=== PATIENT | female | born 1980 | race Caucasian/White ===

== ENCOUNTER 2017-03-30 08:00 | Inpatient (IN) | payer OTHER ==
[2017-03-30] MEDS ORDERED: ELECTROLYTE-148 SOLN 1,000 ML IV SCH (09:00)
[2017-03-30] MEDS ORDERED: AMPICILLIN SODIUM 2 GM VIAL ONE (09:17)
[2017-03-30] MEDS ORDERED: AMPICILLIN - 2 GM in SODIUM CHLORIDE 100 ML IVPB ONE (09:30)
[2017-03-30 09:51] VITALS: BMI 30.9
[2017-03-30 10:30] LABS: BASO % 0.2 % (0-2.0); EOS % 0.5 % (0-4.5); HEMATOCRIT 33.2 % (32.4-45.2); HEMOGLOBIN 10.9 GM/dL (10.7-15.3); LYMPH % 8.4 % (8-40); MCH 29.3 pg (25.7-33.7); MCHC 32.8 g/dl (32.0-36.0); MEAN CELL VOLUME 89.3 fl (80-96); MONO % 5.7 % (3.8-10.2); NEUT % 85.2 % (42.8-82.8); PLATELET COUNT 202 K/MM3 (134-434); RBC 3.72 M/mm3 (3.60-5.2); WHITE BLOOD COUNT 12.2 K/mm3 (4.0-10.0)
[2017-03-30 10:42] LABS: URINE APPEARANCE CLEAR; URINE BILIRUBIN NEGATIVE (NEGATIVE); URINE BLOOD 2+ (NEGATIVE); URINE COLOR YELLOW; URINE GLUCOSE (UA) NEGATIVE (NEGATIVE); URINE KETONE NEGATIVE (NEGATIVE); URINE LEUK ESTERASE TRACE (NEGATIVE); URINE NITRITE NEGATIVE (NEGATIVE); URINE PROTEIN NEGATIVE (NEGATIVE); URINE UROBILINOGEN NEGATIVE mg/dL (0.2-1.0)
[2017-03-30] MEDS ORDERED: PROMETHAZINE HCL 25 MG/1 ML VIAL IVPB ONE (10:45)
[2017-03-30] MEDS ORDERED: BUTORPHANOL TARTRATE 1 MG/ML VIAL IVPUSH ONE (10:45)
[2017-03-30 10:49] LABS: INR 0.91 (0.82-1.09); PROTHROMBIN TIME (PATIENT) 10.3 SEC (9.98-11.88)
[2017-03-30 10:52] LABS: ACTIVATED PTT 25.7 SECONDS (26.9-34.4)
[2017-03-30 10:54] LABS: COCAINE, UR NEGATIVE ng/ml (CUTOFF=300); METHADONE, UR NEGATIVE ng/ml (CUTOFF=300); OPIATES, URI NEGATIVE ng/ml (CUTOFF=300); PHENCYCLIDINE,URINE NEGATIVE ng/ml (CUTOFF=25); URINE AMPHETAMINES NEGATIVE ng/ml (CUTOFF=500); URINE BARBITURATES NEGATIVE ng/ml (CUTOFF=200); URINE BENZODIAZEPINES NEGATIVE ng/ml (CUTOFF=200)
[2017-03-30 10:57] LABS: EPI CELLS RARE /HPF (FEW); URINE MUCUS RARE
[2017-03-30] MEDS ORDERED: TUBERCULIN PPD 5 TU/0.1ML SYRINGE (IN PATIENT USE ONLY) ID ONE (11:00)
[2017-03-30 11:02] LABS: ALBUMIN 2.9 g/dl (3.4-5.0); ANION GAP 8 (8-16); BLOOD UREA NITROGEN 8 mg/dL (7-18); CALCIUM 8.2 mg/dL (8.5-10.1); CHLORIDE 105 mmol/L (98-107); CO2 24 mmol/L (21-32); CREATININE 0.5 mg/dL (0.55-1.02); GLUCOSE,RANDOM 72 mg/dL (74-106); POTASSIUM 3.6 mmol/L (3.5-5.1); SGOT/AST 46 U/L (15-37); SGPT/ALT 29 U/L (12-78); SODIUM 137 mmol/L (136-145)
[2017-03-30 11:04] LABS: ALK PHOS 207 U/L (45-117); BILIRUBIN,TOTAL 0.4 mg/dL (0.2-1.0); TOT PROT 6.8 g/dl (6.4-8.2)
[2017-03-30] MEDS: AMPICILLIN - 1 GM in SODIUM CHLORIDE 100 ML IVPB SCH ×3 (13:32→21:30)
[2017-03-30] MEDS ORDERED: OXYTOCIN 30 UNITS in 0.9% NS 30 UNIT/500 ML INFUS.BAG IVPB SCH (14:45)
[2017-03-30] MEDS ORDERED: FENTANYL/BUPIVACAINE/NS/PF - PCEA - 50 ML DISP.SYRIN EP ONE ×2 (15:47→20:33)
[2017-03-30] MEDS ORDERED: NALOXONE HCL 0.4 MG/ML VIAL IVPUSH PRN (16:14)
[2017-03-30] MEDS ORDERED: FENTANYL/BUPIVACAINE/NS/PF - PCEA - 50 ML DISP.SYRIN EP SCH (16:15)
--- NOTE | 2017-03-30 16:48 | HP ---
Past Medical History - Primary Care Physician PCP:: Tyron Vargas - Admission Chief Complaint: 40 weeks, labor History of Present Illness: 37 yo f 40 weeks c/o contraction, no rom, no bleeding, cx 3cm 80 vx -2 mi, fhr cat 2, contraction q 3min care [facility] , GBS unknown History Source: Patient Limitations to Obtaining History: Language Barrier - Past Medical History ...: 4 ...Para: 2 ...Term: 2 ...: 0 ...Spon : 1 ...Induced : 0 ...Multiple Gestation: 0 ... Weeks Gestation by Dates: 40.0 ...EDC by Dates: 03/30/17 - Past Surgical History Hx Myomectomy: No Hx Transabdominal Cerclage: No - Smoking History Smoking history: Never smoked Have you smoked in the past 12 months: No - Alcohol/Substance Use Hx Alcohol Use: No - Social History Usual Living Arrangement: Yes: With Spouse History of Recent Travel: No Home Medications - Allergies Allergies/Adverse Reactions: Allergies Allergy/AdvReac Type Severity Reaction Status Date / Time No Known Allergies Allergy Verified 03/30/17 08:36 - Home Medications Home Medications: Ambulatory Orders Vit 108/Iron/Folic AC [ One Tablet] 1 tab PO DAILY 03/28/17 Review of Systems - Review of Systems Constitutional: reports: No Symptoms Eyes: reports: No Symptoms HENT: reports: No Symptoms Neck: reports: No Symptoms Cardiovascular: reports: No Symptoms Respiratory: reports: No Symptoms Gastrointestinal: reports: No Symptoms Genitourinary: reports: No Symptoms Breasts: reports: No Symptoms Reported Musculoskeletal: reports: No Symptoms Integumentary: reports: No Symptoms Neurological: reports: No Symptoms Endocrine: reports: No Symptoms Hematology/Lymphatic: reports: No Symptoms Psychiatric: reports: No Symptoms Physical Exam - Maternity Vital Signs: Vital Signs Temperature 98.3 F 03/30/17 14:00 Pulse Rate 77 03/30/17 15:00 Respiratory Rate 18 03/30/17 15:00 Blood Pressure 114/64 03/30/17 15:00 O2 Sat by Pulse Oximetry (%) Constitutional: Yes: Well Nourished, No Distress, Calm Eyes: Yes: WNL, Conjunctiva Clear, EOM Intact HENT: Yes: WNL, Atraumatic, Normocephalic Neck: Yes: WNL, Supple, Trachea Midline Cardiovascular: Yes: WNL, Regular Rate and Rhythm Breast(s): Yes: WNL - Abdominal Exam/OB Fundal Height: 38 Number of Fetuses: Single Presentation: Vertex Contractions: Yes Regularity: Regular Intensity: Moderate Monitor Mode: External Heart Rate Location: [facility] Category: I Accelerations: Uniform Decelerations: None - Vaginal Exam/OB Vaginal Bleediing: No Speculum Exam: No Dilatation (cm): 3 cm Effacement (%): 80 Amniotic Membrane Status: Intact Nitrazine Test: Negative Presentation: Vertex/Position Station: -2 - Physical Exam Musculoskeletal: Yes: WNL Edema: Yes Edema: LLE: Trace, RLE: Trace Integumentary: Yes: Tenting Deep Tendon Reflex Grade: Normal +2 Psychiatric: Yes: WNL - Labs Lab Results: CBC, BMP 03/30/17 10:00 03/30/17 10:00 Hemorrhage Risk Assessment - Risk Factors Medium Risk Factors: Yes: None High Risk Factors: Yes: None Risk Score: 1 Risk Level: Medium Risk Problem List - Problems (1) 40 weeks gestation of Code(s): Z3A.40 - 40 WEEKS GESTATION OF (2) Labor established Code(s): GBB6663 - (3) Advanced maternal age (AMA) in Code(s): [id number] - Assessment/Plan plan admit, fhm ,, prophylactic antibiotic for GBS , pain management
--- NOTE | 2017-03-30 16:56 | PN ---
Progress Note (short form) - Note Progress Note: 2 pm cx 4 cm 80 vx -2 arom, clear , fhr cat 1 Problem List - Problems (1) 40 weeks gestation of Code(s): Z3A.40 - 40 WEEKS GESTATION OF (2) Labor established Code(s): HZZ8946 - (3) Advanced maternal age (AMA) in Code(s): TSV1736 -
[2017-03-30] MEDS ORDERED: AMPICILLIN SODIUM 1 GM VIAL ONE (17:34)
[2017-03-30] MEDS ORDERED: OXYTOCIN 15 UNITS/ LR 250 ML 15 UNIT/250 ML INFUS.BAG IVPB ONE (17:37)
[2017-03-30] MEDS ORDERED: OXYTOCIN 20 UNITS in 0.9% NS 20 UNIT/1,000 ML INFUS.BAG IV ONE (20:42)
[2017-03-30] MEDS ORDERED: LIDOCAINE HCL 1% PRESERVATIVE FREE - 30ML VIAL ONE (20:43)
[2017-03-30] MEDS ORDERED: BENZOCAINE 28 GM HEMORRHOIDAL OINTMENT TP PRN (20:59)
[2017-03-30] MEDS ORDERED: BISACODYL 10 MG SUPP.RECT RC PRN (20:59)
[2017-03-30] MEDS ORDERED: oxyCODONE HCL 5 MG TABLET PO PRN (20:59)
[2017-03-30] MEDS ORDERED: WITCH HAZEL 50% (TUCKS) 40 PAD/JAR PAD TP PRN (20:59)
[2017-03-30] MEDS ORDERED: METHYLERGONOVINE MALEATE 0.2 MG/1 ML AMP IM PRN (20:59)
[2017-03-30] MEDS ORDERED: BENZOCAINE 20% 57 GM BOTTLE TP PRN (20:59)
[2017-03-30] MEDS ORDERED: D5W-LR W/ 20 UNITS OXYTOCIN 1,000 ML IV SCH (21:00)
[2017-03-30] MEDS: FERROUS SO4 325 MG TABLET (FP) PO SCH (21:15)
[2017-03-30 21:25] LABS: ARTERIAL BLOOD GAS pH 7.26 (7.35-7.45)
[2017-03-30] MEDS ORDERED: OXYTOCIN 20 UNITS in 0.9% NS 20 UNIT/1,000 ML INFUS.BAG IV SCH (21:30)
[2017-03-30 21:33] LABS: ARTERIAL BLD GAS O2 SATURATION 9.5 % (90-98.9); ARTERIAL BLOOD GAS PCO2 57.1 mmHg (35-45); ARTERIAL BLOOD GAS PO2 15.4 mmHg (80-100)
[2017-03-30 21:34] LABS: ARTERIAL BLOOD GAS BASE EXCESS -3.4 meq/l (-2-2)
[2017-03-30 21:35] LABS: VENOUS PC02 47.2 mmHg (38-52); VENOUS PH 7.32 (7.32-7.42)
[2017-03-31] MEDS: AMPICILLIN - 1 GM in SODIUM CHLORIDE 100 ML IVPB SCH (01:30)
[2017-03-31] MEDS: IBUPROFEN 600 MG TABLET (FP) PO PRN ×2 (01:44→10:10)
[2017-03-31] MEDS: ACETAMINOPHEN 325 MG TABLET (FP) PO PRN ×2 (01:45→10:11)
[2017-03-31 06:09] LABS: HBsAG SCREEN Negative (Negative)
[2017-03-31 08:10] LABS: RUBELLA IgG ANTIBODY 7.55 index (Immune >0.99)
[2017-03-31] MEDS: FERROUS SO4 325 MG TABLET (FP) PO SCH ×2 (08:38→18:34)
[2017-03-31 09:06] LABS: BASO % 0.2 % (0-2.0); EOS % 0.2 % (0-4.5); HEMOGLOBIN 9.8 GM/dL (10.7-15.3); LYMPH % 8.8 % (8-40); MCH 29.6 pg (25.7-33.7); MCHC 32.8 g/dl (32.0-36.0); MEAN CELL VOLUME 90.3 fl (80-96); MEAN PLT VOLUME 9.8 fl (7.5-11.1); NEUT % 83.8 % (42.8-82.8); PLATELET COUNT 183 K/MM3 (134-434); RBC 3.32 M/mm3 (3.60-5.2); RDW 13.2 % (11.6-15.6); WHITE BLOOD COUNT 14.1 K/mm3 (4.0-10.0)
--- NOTE | 2017-03-31 09:39 | PN ---
Progress Note (short form) - Note Progress Note: ppd 1 doing well , no excess vaginal bleeding, voids ok CBC, BMP 03/31/17 08:25 03/30/17 10:00 Last Vital Signs Temp Pulse Resp BP Pulse Ox 97.9 F 70 20 82/48 100 03/31/17 05:30 03/31/17 05:30 03/31/17 05:30 03/31/17 05:30 03/30/17 18:45 uterus firm, non tender no cva lochia mild , no calf tenderness plan ambulate, d/c home in am Problem List - Problems (1) 40 weeks gestation of Code(s): Z3A.40 - 40 WEEKS GESTATION OF (2) Labor established Code(s): AWE4457 - (3) Advanced maternal age (AMA) in Code(s): QHW3197 -
[2017-03-31] MEDS: PRENATAL VITAMINS W/ FOLIC ACID TABLET (FP) PO SCH (09:57)
[2017-03-31] MEDS ORDERED: DIPHTH,PERTUSS(ACELL),TET 0.5 ML DISP.SYRIN IM ONE (10:00)
[2017-03-31] MEDS ORDERED: PATIENT'S OWN MEDICATION (NON-FORMULARY) (Prenatal Vit 108/Iron/Folic Ac [Prenatal One Tab PO SCH (10:00)
[2017-03-31] MEDS ORDERED: PRENATAL VITAMINS W/ FOLIC ACID TABLET (FP) PO SCH (10:00)
[2017-03-31] MEDS ORDERED: SENNOSIDES/DOCUSATE COMBO (SENNA PLUS) TABLET (UD) PO PRN (22:00)
[2017-04-01] MEDS: ACETAMINOPHEN 325 MG TABLET (FP) PO PRN (06:10)
[2017-04-01] MEDS: IBUPROFEN 600 MG TABLET (FP) PO PRN (06:12)
--- NOTE | 2017-04-01 08:58 | DS ---
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 Signs: Vital Signs Temperature 98.2 F 03/31/17 22:00 Pulse Rate 78 03/31/17 22:00 Respiratory Rate 18 03/31/17 22:00 Blood Pressure 97/65 03/31/17 22:00 O2 Sat by Pulse Oximetry (%) 100 03/30/17 18:45 Constitutional: Yes: Well Nourished, No Distress, Calm Eyes: Yes: WNL, Conjunctiva Clear, EOM Intact HENT: Yes: WNL, Atraumatic, Normocephalic Neck: Yes: WNL, Supple, Trachea Midline Cardiovascular: Yes: WNL, Regular Rate and Rhythm Respiratory: Yes: WNL, Regular, CTA Bilaterally Gastrointestinal: Yes: WNL ...Rectal Exam: Yes: WNL Renal/: Yes: WNL ....Post : Yes: Uterus firm, Uterus non-tender, Slight lochia rubra Breast(s): Yes: WNL Musculoskeletal: Yes: WNL Extremities: Yes: WNL Edema: No Integumentary: Yes: WNL Neurological: Yes: WNL, Alert, Oriented ...Motor Strength: WNL Psychiatric: Yes: WNL, Alert, Oriented Labs: CBC, BMP 03/31/17 08:25 03/30/17 10:00 Delivery - Delivery Vaginal Delivery: Spontaneous (no complication) Type of Anesthesia: Epidural Episiotomy/Laceration: None EBL (cc): 300 Delivery, Single - Stages of Labor Date 1st Stage Initiatied: 03/30/17 Time 1st Stage Initiated: 14:00 Date 2nd Stage Initiated: 03/30/17 Time 2nd Stage Initiated: 20:36 Date of Delivery: 03/30/17 Time of Delivery: 20:50 Time Placenta Delivered: 20:58 Placenta: Yes: Spontaneous - Condition of Swing Tender/Pharmacy Technician Program Director Present: Yes Name: Rufino Colin Infant Gender: Male Weight: 6 lb 10 oz Position: Left, OA Total Hours ROM (Hrs/Mins): [id number] - 1 Minute Total Score: 9 5 Minutes Total Score: 9 - Feeding Plan Initial Plan: Exclusive throughout hospitalization Discharge Summary Reason For Visit: LABOR Current Active Problems 40 weeks gestation of (Acute) Advanced maternal age (AMA) in (Acute) Labor established (Acute) Procedures: Principal: [facility] Hospital Course: uneventful Condition: Good - Instructions Diet, Activity, Other Instructions: regular diet, follow up [facility] care 4 weeks Referrals: Tyron Vargas MD [Staff Physician] - - Home Medications Comprehensive Discharge Medication List: Ambulatory Orders Vit 108/Iron/Folic AC [ One Tablet] 1 tab PO DAILY 03/28/17
[2017-04-01] MEDS: FERROUS SO4 325 MG TABLET (FP) PO SCH (09:13)
[2017-04-01] MEDS: PRENATAL VITAMINS W/ FOLIC ACID TABLET (FP) PO SCH (10:35)
--- NOTE | 2017-04-01 10:40 | PN ---
Post Progress Note - Subjective Subjective: no complains Post Day: 2 Type of Delivery: Vital Signs: Vital Signs Temperature 98.2 F 03/31/17 22:00 Pulse Rate 78 03/31/17 22:00 Respiratory Rate 18 03/31/17 22:00 Blood Pressure 97/65 03/31/17 22:00 O2 Sat by Pulse Oximetry (%) 100 03/30/17 18:45 Breast Exam: Yes: Soft. No: Engorged Uterus: Yes: Fundus Firm, Fundus below umbilicus Lochia: Yes: Rubra Lochia, amount: Moderate Extremities: Yes: Calves non-tender Perineum: Yes: Intact Activity: Ambulating - Labs Labs: CBC WBC 14.1 K/mm3 (4.0-10.0) H 03/31/17 08:25 RBC 3.32 M/mm3 (3.60-5.2) L 03/31/17 08:25 Hgb 9.8 GM/dL (10.7-15.3) L D 03/31/17 08:25 Hct 30.0 % (32.4-45.2) L 03/31/17 08:25 MCV 90.3 fl (80-96) 03/31/17 08:25 MCH 29.6 pg (25.7-33.7) 03/31/17 08:25 MCHC 32.8 g/dl (32.0-36.0) 03/31/17 08:25 RDW 13.2 % (11.6-15.6) 03/31/17 08:25 Plt Count 183 K/MM3 (134-434) 03/31/17 08:25 MPV 9.8 fl (7.5-11.1) 03/31/17 08:25 Neutrophils % 83.8 % (42.8-82.8) H 03/31/17 08:25 Lymphocytes % 8.8 % (8-40) 03/31/17 08:25 Monocytes % 7.0 % (3.8-10.2) 03/31/17 08:25 Eosinophils % 0.2 % (0-4.5) 03/31/17 08:25 Basophils % 0.2 % (0-2.0) 03/31/17 08:25 Assessment/Plan anemia discharge today
[2017-04-01 10:57] VITALS: BP 95/59; PULSE 87; TEMP 98.5
== END 2017-04-01 13:10 | disposition home or self-care (01) | DRG 560 ==
LOC: JDEL 08:00 → JLDR 08:45 → J3W 23:00
PROVIDERS: ADMIT Obstetrics & Gynecology; ATTEND Obstetrics & Gynecology
PROC: 10E0XZZ Delivery of Products of Conception, External Approach (ICD-10-PCS; principal; 2017-03-30)
DX: O48.0 Post-term pregnancy (principal); O99.02 Anemia complicating childbirth; D64.9 Anemia, unspecified; Z3A.40 40 weeks gestation of pregnancy; Z37.0 Single live birth
CPT/HCPCS: 36415; 36600; 59409; 80053; 80307; 81003; 81015; 82803; 85025; 85610; 85730; 86593; 86762; 86850; 86900; 86901; 87340; 87389; 90715